=== PATIENT | male | born 1965 | race Hispanic/Latino ===

== ENCOUNTER → 2025-03-12 | Outpatient (CLI) | payer OTHER ==
[~2025-03-12] MED LIST: AMOX1TAB16 PO; DOXY100T2 PO; HYDR-4419 PO; LINA145C PO; METF-444 PO; OMEP40CA21 PO; PSYLLIUM PO; SERT-439 PO; TRAZ-185 PO; UBID100C10 PO
--- NOTE | 2025-03-13 11:31 | HMCIMG ---
CT CHEST W/O CONTRAST REASON: COCCIDIOIDOMYCOSIS, UNSPECIFIED COMPARISON: 05/24/2023 TECHNIQUE: Multiple sequential axial images of the chest were obtained from the thoracic inlet through the upper pole of the kidneys without intravenous contrast administration. FINDINGS: Lungs are clear. There are no focal masses or infiltrates. There are some minimal pleural scarring at the site of previous masslike density, posteromedial mid right hemithorax. Heart size is normal. There is no vascular congestion. There is no hilar or mediastinal lymphadenopathy. Chest wall structures appear normal. There are mildly enlarged adrenal glands, left 3.4 cm, right 3.4 cm. Degree of enlargement is markedly decreased compared to previous exam. IMPRESSION: 1. Mild residual pleural thickening posteromedially in the right mid hemithorax, previously described a masslike lesion has otherwise completely resolved. 2. Adrenal glands are both mildly enlarged for degree of enlargement has decreased markedly compared to prior exam, left to hydroureter and 3.4 cm on the current exam versus 17 cm on the prior study. CT was performed with one or more following dose reduction techniques: automated exposure control, adjustment of the mA and kv according to patient's size, or use of a iterative reconstruction technique.
== END | disposition home or self-care (01) ==
LOC: RAH 13:27
PROVIDERS: ATTEND Internal Medicine Critical Care Medicine
DX: B38.9 Coccidioidomycosis, unspecified (principal)
CPT/HCPCS: 71250

== ENCOUNTER → 2025-05-23 | Outpatient (CLI) | payer OTHER ==
[~2025-05-23] MED LIST changes: +ALBUTEROL 0.083% 2.5 MG/3 ML INH IH ONE
== END | disposition home or self-care (01) ==
LOC: RESP 12:49
PROVIDERS: ATTEND Internal Medicine Critical Care Medicine
DX: B38.9 Coccidioidomycosis, unspecified (principal)
CPT/HCPCS: 94060; 94727; 94729